=== PATIENT | female | born 2000 | race Caucasian/White ===

== ENCOUNTER 2024-01-23 05:09 | Emergency (ER) | payer MEDICAID ==
[~2024-01-23] VITALS: Ht 162.6 cm; Wt 49.9 kg
[2024-01-23 05:11] VITALS: BP_SYST 135; PULSE 98; RESP 20; TEMP 98.2; O2SAT 98
[2024-01-23 05:31] VITALS: BP_SYST 135; PULSE 98; RESP 20; TEMP 98.2; O2SAT 98
== END 2024-01-23 05:31 | disposition home or self-care (01) ==
LOC: SED 05:09
DX: Z02.89 Encounter for other administrative examinations (principal); M25.512 Pain in left shoulder
CPT/HCPCS: 99283